=== PATIENT | male | born 1955 ===

== ENCOUNTER 2018-06-04 06:29 | Emergency (ER) | payer SELFPAY ==
[2018-06-04 06:47] VITALS: BMI 26.1
[2018-06-04 06:49] VITALS: RESP 16; O2SAT 99
--- NOTE | 2018-06-04 07:27 | ED PDOC ---
HPI: Allergic Reaction Time Seen by Provider: 06/04/18 07:06 Chief Complaint (Nursing): Allergic Reaction History Per: Patient History/Exam Limitations: language barrier Onset/Duration Of Symptoms: Days Current Symptoms Are (Timing): Still Present Possible Cause: Unknown Associated Symptoms: Skin Rash, Itching Home/EMS Treatment: None Additional Complaint(s): CC: my skin itches HPI: 62 YO Male with PMHx of NIDDM, HTN and HLD presents to [facility] ED for itchy rash on skin. Pt states that he first noticed redness and itching in his skin on Wednesday. It initially involved a small area in his chest, but in the next few days the itching intensified and spread throughout his chest and neck and back. Pt states that he has not tried anything for the itching. No associated recent changes to medication, new clothes, lotion or soap. Denies chest pain, palpatations, dyspnea, n/v/d/c fever and chills. of note pt had not taken his BP med this AM. [employer] used for guatemalan, [id number]. PMD: [facility] Narinder PMHx: NIDDM, HTN, HLD SurgHx: infection cyst in back SH: denies ETOH, Smoking and illicit drug use FH: HTN and DM Meds: Metformin, Glipizide, Lisinopril and atrovostatin Allergies: NKDA Past Medical History Vital Signs: Last Vital Signs Temp 98.1 F 06/04/18 06:47 Pulse 71 06/04/18 06:47 Resp 16 06/04/18 06:47 BP 151/73 H 06/04/18 06:47 Pulse Ox 99 06/04/18 06:47 - Medical History PMH: Diabetes (type II), HTN, Hyperlipidemia - Surgical History Surgical History: Back Surgery - Family History Family History: States: Diabetes, Hypertension - Social History Current smoker - smoking cessation education provided: No Alcohol: None Drugs: Denies - Immunization History Hx Influenza Vaccination: No - Home Medications Home Medications: Ambulatory Orders Medication Instructions Recorded Metformin HCl [Metformin] 1,000 mg PO BID #0 tab 03/13/15 Cephalexin [Keflex] 500 mg PO Q6 #28 cap 11/24/15 Metformin Hydrochloride [Metformin] 500 mg PO BID #14 tab 11/24/15 Sulfamethoxazole/Trimethopri 2 tab PO BID #28 tab 11/24/15 [Bactrim Ds 800 mg-160 mg] Clindamycin [Cleocin] 300 mg PO TID #21 cap 11/28/15 Oseltamivir [Tamiflu] 75 mg PO BID #10 cap 01/14/16 Clindamycin [Cleocin] 300 mg PO TID #30 cap 11/25/16 Ibuprofen [Motrin] 600 mg PO Q6 PRN #15 tab 11/25/16 DiphenhydrAMINE [Benadryl] 50 mg PO Q6H PRN #15 cap 06/04/18 Famotidine [Pepcid] 20 mg PO BID #20 tab 06/04/18 Prednisone 50 mg PO DAILY #4 tab 06/04/18 - Allergies Allergies/Adverse Reactions: Allergies Allergy/AdvReac Type Severity Reaction Status Date / Time No Known Allergies Allergy Verified 06/04/18 06:47 Review of Systems Constitutional: Negative for: Fever, Chills Cardiovascular: Negative for: Chest Pain Respiratory: Negative for: Cough, Shortness of Breath, Wheezing Gastrointestinal: Negative for: Nausea, Vomiting, Abdominal Pain, Diarrhea, Constipation Genitourinary Male: Negative for: Dysuria, Frequency Skin: Positive for: Rash Neurological: Negative for: Weakness, Numbness Physical Exam - Physical Exam Appears: Positive for: No Acute Distress Skin: Positive for: Rash (noted in the chest area up to the umbilicus, and in the neck extending to the neck. Dry, scaly red skin with small pintpoint red bumps.) Cardiovascular/Chest: Positive for: Regular Rate, Rhythm Respiratory: Positive for: Normal Breath Sounds. Negative for: Accessory Muscle Use, Wheezing Gastrointestinal/Abdominal: Positive for: Normal Exam, Bowel Sounds, Soft. Negative for: Tenderness Back: Positive for: Other (rash noted throught the neck and back) Extremity: Positive for: Normal ROM. Negative for: Tenderness Neurologic/Psych: Positive for: Alert, Oriented - ECG O2 Sat by Pulse Oximetry: 99 - Progress ED Course And Treament: 62 YO Male with rash, likely dermatitis. VS stable, breathing comfortably in RA. Mild elevation in BP, did not take BP med this AM. -PO benadryl, prednisone, pepsid -1% TOP hydrocortisone Pt seen and reevlauted. Rash looks better, erythema improved Pt states that the itching has resolved Will d/c pt home with follow up with PMD D/c home with predinisone, benadryl, pepsid and Hydrocortisone oint TOP Pt agrees with plan. Disposition - Clinical Impression Clinical Impression: Rash - Disposition Referrals: [facility] [Outside] Disposition: Routine/Home Disposition Time: 09:10 Condition: STABLE Prescriptions: DiphenhydrAMINE [Benadryl] 50 mg PO Q6H PRN #15 cap PRN Reason: Itching / Pruritus Famotidine [Pepcid] 20 mg PO BID #20 tab Prednisone 50 mg PO DAILY #4 tab Instructions: Skin Rash Forms: [facility] (Ukrainian) Print Language: KITTITIAN
[2018-06-04] MEDS ORDERED: DiphenhydrAMINE 50 mg/ml Inj IVP STA (07:46)
[2018-06-04] MEDS ORDERED: Hydrocortisone 1% Oint TOP SCH (09:00)
[2018-06-04 09:05] VITALS: BP 140/77; PULSE 72; TEMP 98
== END 2018-06-04 09:06 | disposition home or self-care (01) ==
LOC: H.ER 06:29
DX: R21 Rash and other nonspecific skin eruption (principal); E78.5 Hyperlipidemia, unspecified; E11.9 Type 2 diabetes mellitus without complications; I10 Essential (primary) hypertension

== ENCOUNTER 2018-11-05 21:49 | Emergency (ER) | payer OTHER ==
[2018-11-05 21:49] VITALS: BMI 26.1
[2018-11-05 22:00] VITALS: BP 108/68; PULSE 79; RESP 16; TEMP 97.2; O2SAT 98
[2018-11-05] MEDS ORDERED: Tmp-Smz 800 mg-160 mg DS Tab PO STA (22:06)
[2018-11-05] MEDS ORDERED: Tmp-Smz 800 mg-160 mg DS Tab ONE (22:12)
--- NOTE | 2018-11-05 22:13 | ED PDOC ---
HPI: Skin/Bite Injury Time Seen by Provider: 11/05/18 22:01 Chief Complaint (Nursing): Abnormal Skin Integrity Chief Complaint (Provider): Abscess History Per: Patient, Range Master (Jenae Garcia RN) History/Exam Limitations: no limitations Onset/Duration Of Symptoms: Days (x5) Current Symptoms Are (Timing): Still Present Quality Of Symptoms: Painful, Swollen Severity: Mild Pain Scale Rating Of: 4 Additional Complaint(s): Patient is a 62 year old male who presents to the ED for evaluation of an abscess. Patient reports he noticed a pimple to his upper back 5 days ago, but since onset the area has become more tender and swollen. Patient reports today the area started draining pus. Patient reports he has a history of recurrent abscesses. Patient did not take any medications prior to arrival in ED. Patient offers no other complaints at this time. Denies: fever, chills. PMD: clinic Tetanus: UTD Past Medical History Reviewed: Historical Data, Nursing Documentation, Vital Signs Vital Signs: Last Vital Signs Temp 97.2 F L 11/05/18 21:56 Pulse 79 11/05/18 21:56 Resp 16 11/05/18 21:56 BP 108/68 11/05/18 21:56 Pulse Ox 98 11/05/18 21:56 - Medical History PMH: Diabetes (type II), HTN, Hyperlipidemia - Surgical History Surgical History: Back Surgery - Family History Family History: States: Diabetes, Hypertension - Social History Current smoker - smoking cessation education provided: No Alcohol: None - Immunization History Hx Tetanus Toxoid Vaccination: Yes (UTD) - Home Medications Home Medications: Ambulatory Orders Medication Instructions Recorded Metformin HCl [Metformin] 1,000 mg PO BID #0 tab 03/13/15 Cephalexin [Keflex] 500 mg PO Q6 #28 cap 11/24/15 Metformin Hydrochloride [Metformin] 500 mg PO BID #14 tab 11/24/15 Sulfamethoxazole/Trimethopri 2 tab PO BID #28 tab 11/24/15 [Bactrim Ds 800 mg-160 mg] Clindamycin [Cleocin] 300 mg PO TID #21 cap 11/28/15 Oseltamivir Cap [Tamiflu] 75 mg PO BID #10 cap 01/14/16 Clindamycin [Cleocin] 300 mg PO TID #30 cap 11/25/16 Ibuprofen [Motrin] 600 mg PO Q6 PRN #15 tab 11/25/16 DiphenhydrAMINE [Benadryl] 50 mg PO Q6H PRN #15 cap 06/04/18 Famotidine [Pepcid] 20 mg PO BID #20 tab 06/04/18 Prednisone 50 mg PO DAILY #4 tab 06/04/18 Cephalexin [Keflex] 500 mg PO TID #21 capsule 11/05/18 Meloxicam [Mobic] 15 mg PO DAILY PRN #10 tab 11/05/18 Sulfamethoxazole/Trimethoprim 1 tab PO BID #14 tab 11/05/18 [Bactrim DS 800 mg-160 mg] - Allergies Allergies/Adverse Reactions: Allergies Allergy/AdvReac Type Severity Reaction Status Date / Time No Known Allergies Allergy Verified 06/04/18 06:47 Review of Systems ROS Statement: Except As Marked, All Systems Reviewed And Found Negative Skin: Positive for: Other (abscess to upper back) Physical Exam - Reviewed Nursing Documentation Reviewed: Yes Vital Signs Reviewed: Yes - Physical Exam Appears: Positive for: Well, Non-toxic, No Acute Distress Head Exam: Positive for: NORMOCEPHALIC Skin: Positive for: Normal Color, Warm, Dry Eye Exam: Positive for: Normal appearance ENT: Positive for: Other (Mucus membranes moist. Airway patent, (-) stridor. ) Neck: Positive for: Painless ROM, Supple Cardiovascular/Chest: Positive for: Regular Rate, Rhythm Respiratory: Positive for: Normal Breath Sounds Back: Positive for: Other (2cm x 2cm abscess to left parathoracic/trapezius region with (+) erythema (+) induration with central fluctuance and active pus drainage (+) tenderness. ). Negative for: Vertebral Tenderness Extremity: Positive for: Normal ROM. Negative for: Deformity Neurologic/Psych: Positive for: Alert, Oriented (x3), Gait (steady in ED). Negative for: Aphasia, Facial Droop - ECG O2 Sat by Pulse Oximetry: 98 (RA) Pulse Ox Interpretation: Normal Medical Decision Making Medical Decision Makin Initial Impression: Abscess of back Plan: -Keflex 500mg PO -Bactrim DS 1 tab PO -Dry dressing applied to abscess -Accucheck Accucheck: 198 (patient reports he normally runs between 130-200) 2255 On re-evaluation, patient reports improvement of symptoms. On exam, patient remains AAOx3, in no acute distress. Vitals stable. Lab/Diagnostic results d/w the patient in great detail. Diagnosis of abscess of back d/w the patient. Based on history, exam and diagnostic results, plan will be for outpatient follow up with clinic. Patient instructed to follow-up with pmd / referral provided / the clinic in 1- 2 days without fail. Advised to take medication as prescribed. Return to the emergency room at any time for any new or worsening symptoms. Patient states he fully agrees with and understands discharge instructions. States that he agrees with the plan and disposition. Verbalized and repeated discharge instructions and plan. I have given the patient opportunity to ask any additional questions. Disposition - Clinical Impression Clinical Impression: Abscess of back - Patient ED Disposition Is Patient to be Admitted: No Counseled Patient/Family Regarding: Studies Performed, Diagnosis, Need For Followup, Rx Given - Disposition Referrals: [facility] [Outside] Disposition: Routine/Home Disposition Time: 22:55 Condition: STABLE Additional Instructions: La atencin mdica de emergencia que recibi hoy se dirigi a alex sntomas agudos. Si le recetaron algn medicamento, llnelo y tmelo segn las indicaciones. Los sntomas pueden tardar varios piper en resolverse. Regrese al Departamento de Emergencias si alex sntomas empeoran, no mejoran o si tiene otros problemas. Comunquese con ledezma mdico dentro de 2 piper para jessee nueva evaluacin y mikki un seguimiento o llame a millie de los mdicos / clnicas a los que garcia sido referido y que figuran en el formulario de Informacin de visita al paciente que se incluye en ledezma paquete de charlette. Lleve todos los documentos que le entregaron al momento del charlette junto con todos los medicamentos que est tomando para ledezma visita de seguimiento. Nuestro tratamiento no puede reemplazar la atencin mdica continua por parte de un proveedor de atencin primaria (PCP) fuera del departamento de emergencias. Prescriptions: Cephalexin [Keflex] 500 mg PO TID #21 capsule Meloxicam [Mobic] 15 mg PO DAILY PRN #10 tab PRN Reason: Pain, Moderate (4-7) Sulfamethoxazole/Trimethoprim [Bactrim DS 800 mg-160 mg] 1 tab PO BID #14 tab Instructions: Boil, Wound Care Forms: [facility] (Japanese) Print Language: CZECH - POA Present On Arrival: None
== END 2018-11-05 23:19 | disposition home or self-care (01) ==
LOC: H.ER 21:49
DX: L02.212 Cutaneous abscess of back [any part, except buttock and flank] (principal); E11.9 Type 2 diabetes mellitus without complications; Z79.84 Long term (current) use of oral hypoglycemic drugs; I10 Essential (primary) hypertension
CPT/HCPCS: 82948; 96372; 99285; J1885